=== PATIENT | male | born 1985 | race Caucasian/White ===

== ENCOUNTER 2021-10-31 18:55 | Emergency (ER) | payer OTHER, MEDICAID ==
[~2021-10-31] VITALS: Ht 172.7 cm; Wt 79.4 kg
[~2021-10-31 18:55] MED LIST: [UNRECOGNIZED DRUG - REMARK]
[2021-10-31 19:50] VITALS: BP 149/75
--- NOTE | 2021-10-31 20:41 | NUR ---
Patient taken to X-ray via W/C
--- NOTE | 2021-10-31 21:17 | NUR ---
Dr. Rea examining patient.
[2021-10-31] MEDS ORDERED: NAPR-1704 PO (21:25)
[2021-10-31] MEDS ORDERED: IBUPROFEN 400 MG TAB PO ONE (21:25)
[2021-10-31 21:40] VITALS: BP 142/76
== END 2021-10-31 21:40 | disposition home or self-care (01) ==
LOC: MED 18:55
DX: S93.602A Unspecified sprain of left foot, initial encounter (principal); Z98.890 Other specified postprocedural states; X58.XXXA Exposure to other specified factors, initial encounter; Y93.89 Activity, other specified; Y92.89 Other specified places as the place of occurrence of the external cause; Y99.8 Other external cause status
CPT/HCPCS: 29515; 73610; 73630; 99283

== ENCOUNTER 2022-03-18 03:09 | Emergency (ER) | payer OTHER, MEDICAID ==
[~2022-03-18] VITALS: Ht 172.7 cm; Wt 79.4 kg
[~2022-03-18 03:09] MED LIST changes: +NAPR-1704 PO
[2022-03-18 03:15] VITALS: BP 120/73
--- NOTE | 2022-03-18 03:15 | NUR ---
TO BED AMBULATORY
--- NOTE | 2022-03-18 03:22 | NUR ---
PATIENT TAKEN TO BED 04.
--- NOTE | 2022-03-18 03:33 | NUR ---
pt is having abd willard since 1999, didnt take the meds. alert and oriented x 4. ambulatory and room air
[2022-03-18] MEDS ORDERED: DICYCLOMINE HCL LIQUID 10 MG/5 ML UDC ONE ×2 (03:35→03:37)
[2022-03-18] MEDS ORDERED: DICYCLOMINE HCL LIQUID 20 MG, ALUMINUM HYD/MAG/SIMETHICONE 30 ML, LIDOCAINE VISCOUS 2% ... PO ONE ×3 (03:35)
[2022-03-18] MEDS ORDERED: ALUMINUM HYD/MAG/SIMETHICONE 30 ML UDC ONE ×2 (03:35→03:37)
[2022-03-18] MEDS ORDERED: KETOROLAC 30 MG/ML VIAL IM ONE (05:10)
[2022-03-18] MEDS ORDERED: KETOROLAC 30 MG/ML VIAL ONE (05:10)
[2022-03-18] MEDS ORDERED: FAMOTIDINE 20 MG TAB ONE (05:10)
[2022-03-18] MEDS ORDERED: FAMOTIDINE 20 MG TAB PO ONE (05:10)
[2022-03-18 05:26] LABS: BASOPHILS % (AUTO) 0.4 % (0.0-2.0); EOSINOPHILS # (AUTO) 0.2 K/uL (0-0.4); EOSINOPHILS % (AUTO) 2.6 % (0.0-4.0); HEMATOCRIT 40.9 % (36-52); HEMOGLOBIN 13.4 g/dL (12.0-18.0); LYMPHOCYTES # (AUTO) 2.8 K/uL (2.0-11.5); LYMPHOCYTES % (AUTO) 42.7 % (20.5-51.1); MEAN CORPUSCULAR HEMOGLOBIN 28 pg (27-31); MEAN CORPUSCULAR HGB CONC 33 g/dL (33-37); MEAN CORPUSCULAR VOLUME 85.7 fL (80-94); MONOCYTES # (AUTO) 0.5 K/uL (0.8-1.0); MONOCYTES % (AUTO) 8.1 % (1.7-9.3); NEUTROPHILS # (AUTO) 3.1 K/uL (1.8-7.7); NEUTROPHILS % (AUTO) 46.2 % (42.2-75.2); PLATELET COUNT (AUTO) 328 K/uL (140-450); RED BLOOD CELL COUNT(AUTO) 4.77 MIL/uL (4.20-6.10); RED CELL DISTRIBUTION WIDTH 13.5 % (11.6-13.7); WHITE BLOOD COUNT (AUTO) 6.6 K/uL (4.8-10.8)
[2022-03-18 05:28] LABS: ALBUMIN 3.4 g/dL (3.4-5.0); ANION GAP 11.6 (8-16); CARBON DIOXIDE 29.4 mmol/L (21-32); CREATININE 0.8 mg/dL (0.6-1.3); TOTAL BILIRUBIN 0.2 mg/dL (0.0-1.0)
[2022-03-18] MEDS ORDERED: BISM262C53 PO (05:40)
[2022-03-18] MEDS ORDERED: SUCR1TAB35 PO (05:40)
[2022-03-18] MEDS ORDERED: OMEP40EC23 PO (05:40)
[2022-03-18 05:53] VITALS: BP 120/73
--- NOTE | 2022-03-18 05:54 | NUR ---
Patient discharged with v/s stable. Written and verbal after care instructions given and explained. Patient verbalized understanding. Ambulatory with steady gait. All questions addressed prior to discharge. Advised to follow up with PMD. pt left with cee luis
== END 2022-03-18 05:53 | disposition home or self-care (01) ==
LOC: MED 03:09
DX: K29.70 Gastritis, unspecified, without bleeding (principal); Z89.511 Acquired absence of right leg below knee; Z79.899 Other long term (current) drug therapy
CPT/HCPCS: 36415; 71045; 80053; 83690; 85025; 96372; 99283; J1885

== ENCOUNTER 2023-08-04 06:50 | Emergency (ER) | payer MEDICAID, OTHER ==
[~2023-08-04] VITALS: Ht 172.7 cm; Wt 79.4 kg
[~2023-08-04 06:50] MED LIST changes: +BISM262C53 PO; +OMEP40EC23 PO; +SUCR-34 PO
[2023-08-04 07:00] VITALS: BP 121/74; PULSE 90; RESP 17; TEMP 98; O2SAT 97
[2023-08-04] MEDS: ALUMINUM HYD/MAG/SIMETHICONE 30 ML UDC PO ONE (07:21)
[2023-08-04] MEDS: FAMOTIDINE 20 MG TAB PO ONE (07:22)
[2023-08-04 07:25] LABS: BASOPHILS % (AUTO) 0.1 % (0.0-2.0); EOSINOPHILS % (AUTO) 0.1 % (0.0-4.0); HEMATOCRIT 41.5 % (36-52); HEMOGLOBIN 14.4 g/dL (12.0-18.0); LYMPHOCYTES # (AUTO) 0.9 K/uL (2.0-11.5); LYMPHOCYTES % (AUTO) 11.7 % (20.5-51.1); MEAN CORPUSCULAR HEMOGLOBIN 29 pg (27-31); MEAN CORPUSCULAR HGB CONC 35 g/dL (33-37); MEAN CORPUSCULAR VOLUME 84.6 fL (80-94); MONOCYTES # (AUTO) 0.4 K/uL (0.8-1.0); MONOCYTES % (AUTO) 5.6 % (1.7-9.3); NEUTROPHILS # (AUTO) 6.6 K/uL (1.8-7.7); NEUTROPHILS % (AUTO) 82.5 % (42.2-75.2); PLATELET COUNT (AUTO) 217 K/uL (140-450); RED CELL DISTRIBUTION WIDTH 13.3 % (11.6-13.7)
[2023-08-04 07:43] LABS: ALBUMIN 3.8 g/dL (3.4-5.0); ANION GAP 12.9 (8-16); CALCIUM 8.9 mg/dL (8.5-10.1); CARBON DIOXIDE 27.6 mmol/L (21-32); CREATININE 0.9 mg/dL (0.6-1.3); POTASSIUM 3.5 mmol/L (3.5-5.1); TOTAL BILIRUBIN 0.4 mg/dL (0.0-1.0); TOTAL PROTEIN, SERUM 7.2 g/dL (6.4-8.2)
[2023-08-04] MEDS: SUCRALFATE 1 GM TAB PO SCH (08:18)
[2023-08-04] MEDS: KETOROLAC 30 MG/ML VIAL IM ONE (08:21)
[2023-08-04] MEDS ORDERED: MAG355OR2 PO (08:58)
[2023-08-04] MEDS ORDERED: FAMO-90 PO (08:58)
[2023-08-04 09:17] VITALS: BP 122/82; PULSE 88; RESP 17; TEMP 98; O2SAT 99
== END 2023-08-04 09:17 | disposition home or self-care (01) ==
LOC: MED 06:50
DX: K21.9 Gastro-esophageal reflux disease without esophagitis (principal); Z79.1 Long term (current) use of non-steroidal anti-inflammatories (NSAID); Z79.899 Other long term (current) drug therapy
CPT/HCPCS: 36415; 80053; 83690; 85025; 96372; 99284; J1885